=== PATIENT | female | born 1980 | race Two or more races ===

== ENCOUNTER 2022-07-03 11:58 | Emergency (ER) | payer MEDICAID ==
[~2022-07-03] VITALS: Ht 162.6 cm; Wt 59.0 kg
[2022-07-03] MEDS: HALOPERIDOL LACTATE 5MG/ML VIAL IM ONE ×2 (14:45→14:52)
[2022-07-03] MEDS: LORAZEPAM 2MG/ML CPJ IM ONE ×2 (14:45→14:52)
[2022-07-03] MEDS: DIPHENHYDRAMINE 50MG/ML VIAL IM ONE ×2 (14:45→14:52)
[2022-07-03 14:53] LABS: BASOPHILS % 0.5 % (0.0-2.0); EOSINOPHILS % 1.1 % (0.0-5.0); HEMATOCRIT. 38.4 % (36.0-48.0); HEMOGLOBIN. 12.9 g/dL (12.0-16.0); LYMPHOCYTES % 14.7 % (20.0-50.0); MEAN CORPUSCULAR VOLUME 89.4 fL (81.0-99.0); MEAN PLATELET VOLUME 6.8 fl (7.4-10.4); MONOCYTES % 3.8 % (2.0-8.0); NEUTROPHILS % 79.9 % (40.0-76.0); PLATELET 476 x1000/uL (130-400); RED BLOOD CELL COUNT 4.29 mill/uL (4.2-5.4); RED CELL DISTRIBUTION WIDTH 14.3 % (11.6-14.6)
[2022-07-03 15:25] LABS: CHLORIDE 107 mEq/L (98-107)
[2022-07-03 15:30] LABS: ETHANOL BLOOD < 10 mg/dL
[2022-07-03 16:15] LABS: HCG SCREEN NEGATIVE
[2022-07-04 09:03] VITALS: BP 133/81
== END 2022-07-04 09:04 | disposition home or self-care (01) ==
LOC: ER 11:58
DX: F19.239 Other psychoactive substance dependence with withdrawal, unspecified (principal); Z59.00 Homelessness unspecified
CPT/HCPCS: 36415; 80048; 80307; 80320; 80329; 84703; 85025; 99285; J1630; J1200; J2060; G0480

== ENCOUNTER 2023-04-02 02:55 | Emergency (ER) | payer MEDICAID ==
[~2023-04-02] VITALS: Ht 167.6 cm; Wt 77.0 kg
[2023-04-02 02:57] VITALS: O2SAT 98
[2023-04-02 03:50] LABS: BASOPHILS % 0.6 % (0.0-2.0); EOSINOPHILS % 0.6 % (0.0-5.0); HEMATOCRIT. 37.3 % (36.0-48.0); HEMOGLOBIN. 12.6 g/dL (12.0-16.0); LYMPHOCYTES % 16.7 % (20.0-50.0); MEAN CORPUSCULAR HGB CONC 33.7 g/dL (31.0-37.0); MEAN CORPUSCULAR VOLUME 95.1 fL (81.0-99.0); MEAN PLATELET VOLUME 6.9 fl (7.4-10.4); MONOCYTES % 6.6 % (2.0-8.0); NEUTROPHILS % 75.5 % (40.0-76.0); PLATELET 422 x1000/uL (130-400); RED BLOOD CELL COUNT 3.92 mill/uL (4.2-5.4); RED CELL DISTRIBUTION WIDTH 12.5 % (11.6-14.6); WHITE BLOOD COUNT 9.5 x1000/uL (4.5-11.0)
[2023-04-02 04:08] LABS: AMMONIA < 17 uMol/L (<32)
[2023-04-02 04:18] LABS: ACETAMINOPHEN < 2 ug/mL (10-30); ALANINE AMINOTRANSFERASE 43 IU/L (10-49); ALBUMIN 4.3 g/dL (3.2-4.8); ASPARTATE AMINOTRANSFERASE 45 IU/L (<34); BILIRUBIN TOTAL 0.5 mg/dL (0.1-1.0); CALCIUM 8.8 mg/dL (8.7-10.4); CARBON DIOXIDE 25 mEq/L (21-32); CHLORIDE 103 mEq/L (98-107); CREATINE KINASE 1270 IU/L (34-145); CREATININE 0.9 mg/dL (0.6-1.0); GLUCOSE 154 mg/dL (70-105); PROTEIN TOTAL 7.9 g/dL (6.0-8.3); SODIUM 137 mEq/L (136-145); TROPONIN I HIGH SENSITIVITY 20 ng/L (3.0-34); UREA NITROGEN BLOOD 18 mg/dL (9-23)
[2023-04-02 04:23] LABS: HCG SCREEN NEGATIVE
[2023-04-02 04:39] LABS: ETHANOL BLOOD < 10 mg/dL (<10); POTASSIUM 2.8 mEq/L (3.5-5.1)
[2023-04-02] MEDS ORDERED: SODIUM CHLORIDE 0.9% 1,000 ML IV NR (05:45)
[2023-04-02] MEDS ORDERED: POTASSIUM CHLORIDE 20MEQ/PACKET PO NR (05:45)
[2023-04-02] MEDS ORDERED: NALO4SPR BOTHNSTRLS (07:04)
[2023-04-02 07:53] VITALS: BP 119/65; PULSE 81; RESP 16; TEMP 98.7
== END 2023-04-02 08:10 | disposition home or self-care (01) ==
LOC: ER 03:22
DX: T40.2X1A Poisoning by other opioids, accidental (unintentional), initial encounter (principal); E87.6 Hypokalemia; E86.0 Dehydration; F14.90 Cocaine use, unspecified, uncomplicated; F15.90 Other stimulant use, unspecified, uncomplicated
CPT/HCPCS: 36415; 71045; 80053; 80307; 80320; 80329; 82140; 82550; 83605; 84484; 84703; 85025; 93005; 96360; 99285; G0480